=== PATIENT | male | born 1955 | race Two or more races ===

== ENCOUNTER 2021-06-14 09:59 | Emergency (ER) | payer OTHER ==
[~2021-06-14] VITALS: Ht 188 cm; Wt 74.8 kg
[2021-06-14 12:56] VITALS: BP 120/64
== END 2021-06-14 13:25 | disposition home or self-care (01) ==
LOC: ER 09:59
DX: N39.0 Urinary tract infection, site not specified (principal); Z46.6 Encounter for fitting and adjustment of urinary device; Z76.0 Encounter for issue of repeat prescription
CPT/HCPCS: 51702